=== PATIENT | female | born 1970 | race Caucasian/White ===

== ENCOUNTER → 2023-12-29 10:01 | Outpatient (REF) | payer OTHER, SELFPAY | LOC: WDC 10:01 | PROVIDERS: ATTENDING PHYSICIAN Internal Medicine | DX: Z12.31 Encounter for screening mammogram for malignant neoplasm of breast (principal) | CPT/HCPCS: 77063; 77067 ==

== ENCOUNTER → 2024-04-14 16:05 | Outpatient (REF) | payer OTHER, SELFPAY | LOC: RAD 16:05 | PROVIDERS: ATTENDING PHYSICIAN Registered Nurse | DX: M54.16 Radiculopathy, lumbar region (principal) | CPT/HCPCS: 72110 ==

== ENCOUNTER 2024-08-01 16:12 | Outpatient (RCR) | payer OTHER, SELFPAY | END 2024-08-01 23:59 | disposition home or self-care (01) | LOC: RPT 16:12 | PROVIDERS: ATTENDING PHYSICIAN Physician Assistant; FAMILY PHYSICIAN Internal Medicine | DX: M54.16 Radiculopathy, lumbar region (principal); M51.26 Other intervertebral disc displacement, lumbar region; M48.061 Spinal stenosis, lumbar region without neurogenic claudication; M53.3 Sacrococcygeal disorders, not elsewhere classified; Z73.6 Limitation of activities due to disability; M54.2 Cervicalgia | CPT/HCPCS: 97110; 97163 ==

== ENCOUNTER 2024-08-18 09:03 | Outpatient (RCR) | payer OTHER, SELFPAY | END 2024-08-18 23:59 | disposition home or self-care (01) | LOC: RPT 09:03 | PROVIDERS: ATTENDING PHYSICIAN Physician Assistant; FAMILY PHYSICIAN Internal Medicine | DX: M54.16 Radiculopathy, lumbar region (principal); M51.26 Other intervertebral disc displacement, lumbar region; M48.061 Spinal stenosis, lumbar region without neurogenic claudication; M53.3 Sacrococcygeal disorders, not elsewhere classified; Z73.6 Limitation of activities due to disability | CPT/HCPCS: 97110; 97112; 97140 ==

== ENCOUNTER → 2025-08-15 07:31 | Outpatient (REF) | payer OTHER, SELFPAY ==
[2025-08-15 08:25] LABS: Hematocrit 41.7 % (37.0-47.0); Hemoglobin 13.8 g/dL (12.0-16.0); Mean Corp Hgb Conc. 33.1 g/dL (33.0-37.0); Mean Corpuscular Volume 98.1 fL (81.0-99.0); Nucleated Red Blood Cells % 0 %; Platelet Count 162 10^3/uL (130-400); Red Cell Dist. Width 12.7 % (11.5-14.5)
[2025-08-15 08:56] LABS: ALT (SGPT) 18 U/L (0-35); AST (SGOT) 20 U/L (14-36); Albumin 4.2 g/dl (3.5-5.0); Alkaline Phosphatase 36 U/L (38-126); Blood Urea Nitrogen 11 mg/dl (7-17); Calcium 9.3 mg/dl (8.4-10.2); Carbon Dioxide 28 mmol/L (22-30); Chloride 107 mmol/L (98-107); Glucose 91 mg/dl (70-99); HDL Cholesterol 63 mg/dl; LDL Cholesterol, Calculated 165 mg/dl; Potassium 4.5 mmol/L (3.5-5.1); Sodium 140 mmol/L (135-145); Total Protein 6.7 g/dl (6.3-8.2); Very Low Density Lipoprotein 20 mg/dl (0-30); eGFR > 60.00
[2025-08-15 09:56] LABS: Folate 6.9 ng/ml (2.76-20); Vitamin B12 359 pg/ml (239-931)
== END ==
LOC: REG 07:31
PROVIDERS: ATTENDING PHYSICIAN Internal Medicine
DX: R71.8 Other abnormality of red blood cells (principal); E78.5 Hyperlipidemia, unspecified; Z23 Encounter for immunization
CPT/HCPCS: 36415; 80053; 80061; 82607; 82746; 84443; 85025